=== PATIENT | female | born 1970 | race Caucasian/White ===

== ENCOUNTER → 2018-10-18 | Outpatient (CLI) | payer BC | LOC: MAMMO 14:25 | PROVIDERS: ATTEND Obstetrics & Gynecology | DX: Z12.31 Encounter for screening mammogram for malignant neoplasm of breast (principal) | CPT/HCPCS: 77067 ==

== ENCOUNTER → 2019-04-13 | Day surgery (SDC) | payer BC ==
[~2019-04-13] MED LIST: BENICAR5 MG PO; CALCIUM PO; FENOFIBRATE145 MG PO; FENTANYL CITRATE/PF 100MCG/2 ML INJ ONE; HYOSCYAMINE 0.125 MG TAB ONE; IRON PO; KETAMINE HCL INJ 50 MG/ML 10 ML VIAL ONE; MIDAZOLAM HCL 2 MG/2 ML VIAL ONE; PROPOFOL IV EMULSION 10 MG/ML 50 ML VIAL ONE; TRICOR145 MG PO
--- OUTSIDE RECORDS SUMMARY | 2019-04-13 09:18 | XMS REPORT ---
Author Author [facility] Address Unknown Phone Unavailable Care Team Providers Care Shop Welder Name Role Phone TAVO RAMACHANDRAN Unavailable Unavailable Elicia HARDIN Unavailable Unavailable Problems This patient has no known problems. Allergies, Adverse Reactions, Alerts This patient has no known allergies or adverse reactions. Medications This patient has no known medications. Results Test Description Test Time Test Comments Text Results Atomic Results Result Comments MAMMOGRAPHY DIGITAL SCR BILAT 2018-10-18 14:47:00 [place] [address] Patient Name: ANTOINETTE FLOWERS MR #: [id number] : 1970 Age/Sex: 48/F Req #: [id number] Adm Physician: Ordered by: TAVO RAMACHANDRAN MD Report #: [id number] Location: MAMMO Room/Bed: Procedure: [id number] MG/MAMMOGRAPHY DIGITAL SCR BILAT Exam Date: 10/18/18 Exam Time: 1449 REPORT STATUS: Signed #[id number] - [id number] #BILATERAL DIGITAL SCREENING MAMMOGRAM WITH CAD: 10/18/2018 CLINICAL: Routine screening. Comparison is made to exams dated: 02/21/2017 mammogram and 10/20/2015 mammogram - [facility]. Current study contains 4 films. The tissue of both breasts is extremely dense, which lowers the sensitivity of mammography. Current study was also evaluated with a Computer Aided Detection (CAD) system. There are benign scattered calcifications in both breasts. No significant masses, calcifications, or other findings are seen in either breast. There has been no significant interval change. IMPRESSION: BENIGN There is no mammographic evidence of malignancy. A 1 year screening mammogram is recommended. The patient will be notified by letter of the results. Abdullahi goyal/zuleima:11/02/2018 15:03:03 Dressage Judge: Shira RAYO(R)(M), [facility] letter sent: Compared to Prior B9 Mammogram BI- RADS: 2 Benign Dictated By: ABDULLAHI PRIETO DO 1503 Transcribed By: ZULEIMA on 11/02/18 1509 COPY TO: TAVO RAMACHANDRAN MD CT BRAIN WO [place] [address] Patient Name: ANTOINETTE FLOWERS MR #: [id number] : 1970 Age/Sex: 47/F Req #: [id number] Adm Physician: Ordered by: JOSHUA HARDIN MD Report #: [id number] Location: ER Room/Bed: Procedure: [id number] CT/CT BRAIN WO Exam Date: 05/22/17 Exam Time: 1615 REPORT STATUS: Signed History: S SPEECH CHANGE WITH HEART PRESSURE PER PT Comparison studies: None Technique: Axial images were obtained from the skull base to the vertex. Coronal and sagittal reconstructions obtained from the axial data. Findings: Scalp/skull: No abnormalities. No fractures, blastic or lytic lesions. Extra-axial spaces: No masses. No fluid collections. Brain sulci: Appropriate for age. Ventricles: Normal in size and configuration. No hydrocephalus. Parenchyma: No abnormal densities. No masses, hemorrhage, acute or chronic cortical vascular insults. Sellar/suprasellar region: No abnormalities Craniocervical junction: Patent foramen magnum. No Chiari one malformation. IMPRESSION: No abnormalities . Signed by: DR Meghan Morales M.D. on 05/22/2017 6:00 PM Dictated By: MEGHAN CHAWLA MD 1800 Transcribed By: OLMAN on 05/22/17 1800 COPY TO: JOSHUA HARDIN MD CHEST SINGLE (PORTABLE) [place] [address] Patient Name: ANTOINETTE FLOWERS MR #: [id number] : 1970 Age/Sex: 47/F Req #: [id number] Adm Physician: Ordered by: JOSHUA HARDIN MD Report #: [id number] Location: ER Room/Bed: Procedure: [id number] DX/CHEST SINGLE (PORTABLE) Exam Date: 05/22/17 Exam Time: 1400 REPORT STATUS: Signed PROCEDURE: A single AP view of the chest. COMPARISON: None. INDICATIONS: CHEST TIGHTNESS FINDINGS: Lines/tubes: None. Lungs: The lungs are well inflated and clear. There is no evidence of pneumonia or pulmonary edema. Pleura: There is no pleural effusion or pneumothorax. Heart and mediastinum: The heart and the mediastinum are unremarkable. Bones: No acute bony abnormality. IMPRESSION: No acute radiographic abnormality. Dictated by: Efraín Hutchinson M.D. on 05/22/2017 at 14:33 Electronically approved by: Efraín Hutchinson M.D. on 05/22/2017 at 14:33 Dictated By: EFRAÍN HUTCHINSON MD 1433 Transcribed By: CAROL on 05/22/17 143 COPY TO: JOSHUA HARDIN MD
[2019-04-13 14:47] VITALS: BP 126/71
--- NOTE | 2019-04-13 17:28 | Operative Report ---
DATE OF PROCEDURE: 04/13/2019 SURGEON: Kenneth Roberts MD PROCEDURE: Colonoscopy with polypectomy. INDICATIONS FOR COLONOSCOPY: Colorectal cancer screening. MEDICATIONS: The patient was done under MAC, please see anesthesiologist's note. PROCEDURE IN DETAIL: With the patient in left lateral decubitus position, a flexible fiberoptic Olympus colonoscope was introduced into the rectum and advanced all the way to the cecum. Mucosa overlying the cecum appeared to be within normal limits. Approximately 1 cm sessile polyp was removed per snare electrocautery and site was hemoclipped. An additional polyp was approximately 8 mm in size that was removed per snare electrocautery and an additional polyp approximately 6 mm was removed per cold polypectomy snare. The transverse grossly appeared to be within normal limits. Some scattered diverticular disease was noted pretty much throughout the colon, but it was more prominent in the left colon. A giant upper pedunculated polyp was noted in the sigmoid colon and it was removed per snare electrocautery and polypectomy site was hemoclipped x2. The rectum grossly appeared to be within normal limits. The scope was then retroflexed into the distal rectum and small internal hemorrhoids were noted, none of which was actively bleeding. The scope was then straightened out, it was subsequently withdrawn. The patient tolerated the procedure well. IMPRESSION: 1. Ascending colon polyps x3, two removed per snare electrocautery and one site was hemoclipped x1. The third polyp was removed per cold snare polypectomy. 2. Diverticulosis more prominent to the left colon. 3. Large polyp, sigmoid colon removed per snare electrocautery and polypectomy site was hemoclipped x2. 4. Internal hemorrhoids, none actively bleeding. PLAN: Follow up histology. Initiate high-fiber, low-fat diet. Initiate high-fiber supplement. Timing of followup colonoscopy pending pathology report. If the large polyp turns out to be totally benign then a followup colonoscopy is in order in one year. Kenneth Roberts MD [facility] [place]/JASPERL /[id number] cc: Micheal Rowell DO
== END | disposition home or self-care (01) ==
LOC: OR 09:05
PROVIDERS: ATTEND Internal Medicine Gastroenterology
DX: K59.00 Constipation, unspecified (principal); D12.2 Benign neoplasm of ascending colon; D12.5 Benign neoplasm of sigmoid colon; R03.0 Elevated blood-pressure reading, without diagnosis of hypertension; Z01.810 Encounter for preprocedural cardiovascular examination; Z01.812 Encounter for preprocedural laboratory examination; E78.5 Hyperlipidemia, unspecified; K63.5 Polyp of colon; K57.30 Diverticulosis of large intestine without perforation or abscess without bleeding; K64.8 Other hemorrhoids
CPT/HCPCS: 45380; 45385; 81025; 93005; J2250; J2704; J3010; 45378

== ENCOUNTER → 2022-03-10 | Outpatient (CLI) | payer BC ==
[~2022-03-10] MED LIST changes: -FENTANYL CITRATE/PF 100MCG/2 ML INJ ONE; -HYOSCYAMINE 0.125 MG TAB ONE; -KETAMINE HCL INJ 50 MG/ML 10 ML VIAL ONE; -MIDAZOLAM HCL 2 MG/2 ML VIAL ONE; -PROPOFOL IV EMULSION 10 MG/ML 50 ML VIAL ONE
== END ==
LOC: MAMMO 15:13
PROVIDERS: ATTEND Family Medicine
DX: Z12.31 Encounter for screening mammogram for malignant neoplasm of breast (principal)
CPT/HCPCS: 77067

== ENCOUNTER → 2024-10-31 | Outpatient (REF) | payer BC | LOC: MAMMO 08:54 | PROVIDERS: ATTEND Family Medicine | DX: Z12.31 Encounter for screening mammogram for malignant neoplasm of breast (principal) | CPT/HCPCS: 77067 ==